=== PATIENT | male | born 1995 | race American Indian/Alaskan Native ===

== ENCOUNTER 2018-12-30 13:32 | Emergency (ER) | payer MEDICAID, OTHER ==
[2018-12-30 13:43] VITALS: BP 117/58
--- NOTE | 2018-12-30 13:44 | Emergency Department Report ---
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
--- NOTE | 2018-12-30 18:17 | Emergency Department Report ---
ED Rash HPI - HPI Chief Complaint: Rectal Pain Stated Complaint: ANUS PAIN Time Seen by Provider: 12/30/18 13:42 Suspected Cause: Unknown Rash Symptoms: No Itching, No Facial Swelling, No Tongue/Oral Swelling, No Breathing Difficulties, No Choking Sensation, No Wheezing/Dyspnea, No Peeling, No Blistering, No Fever, No Lightheaded, No Malaise, No Myalgias Severity: mild Other History: Patient is a 23-year-old that comes to the ER today complaining of pain around her rectum and around her rectum. She has had it for several days. Patient denies any physical altercation to me. Her vital signs are stable. ED Review of Systems ROS: Stated complaint: ANUS PAIN Other details as noted in HPI Comment: All other systems reviewed and negative ED Past Medical Hx - Past Medical History Previous Medical History?: No - Surgical History Past Surgical History?: No - Family History Family history: no significant - Social History Smoking Status: Never Smoker - Medications Home Medications: Home Medications Medication Instructions Recorded Confirmed Last Taken Type Naproxen [Naprosyn] 500 mg PO BID PRN #20 tablet 12/30/18 Unknown Rx Podofilox [Condylox 0.5%] 1 applicatio TP BID #1 gel..gram. 12/30/18 Unknown Rx Rash Exam - Exam General: Vital signs noted. No distress. Alert and acting appropriately. WDWN patient in NAD VS per RN flow sheet Alert and oriented to person, place and time. S1-S2. No S3 or S4. No systolic or diastolic murmur. No JVD. No pitting edema. Lungs clear to auscultation bilaterally anteriorly and posteriorly. Abdomen soft nontender bowel sounds x 4 rectal warts around anus- no hx of the same Moves all extremities well. Mood and affect appropriate. HEENT: No Periorbital Edema ED Course Vital Signs 12/30/18 13:42 Temperature 98.4 F Pulse Rate 78 Respiratory 18 Rate Blood Pressure 117/58 O2 Sat by Pulse 99 Oximetry ED Medical Decision Making - Medical Decision Making rectal warts on exam no hemorrhoids discussed with pt- provider is able to sign will dc home with outpatient follow up Vital Signs 12/30/18 13:42 Temperature 98.4 F Pulse Rate 78 Respiratory 18 Rate Blood Pressure 117/58 O2 Sat by Pulse 99 Oximetry Critical care attestation.: If time is entered above; I have spent that time in minutes in the direct care of this critically ill patient, excluding procedure time. ED Disposition Clinical Impression: Anal warts Disposition: TO HOME OR SELFCARE Is pt being admited?: No Does the pt Need Aspirin: No Condition: Stable Instructions: Genital Warts (ED) Additional Instructions: DIET TOLERATED MEDS ORDERED TODAY IN ER FOLLOW INSTRUCTIONS ON THE BOTTLE FOLLOW UP PCP WITHIN 48 HOURS TO ENSURE YOU ARE GETTING BETTER ACTIVITY TOLERATED MOTRIN OR TYLENOL FOR PAIN OR FEVER RETURN TO THE ER FOR WORSENING SYMPTOMS NOT RELIEVED BY YOUR MEDICATIONS. Prescriptions: Podofilox [Condylox 0.5%] 1 applicatio TP BID #1 gel..gram. Naproxen [Naprosyn] 500 mg PO BID PRN #20 tablet PRN Reason: Pain Referrals: OLENA LAMBERT MD [Primary Care Provider] - 3-5 Days JORDON GRIFFITHS MD [Staff Physician] - 3-5 Days Time of Disposition: 18:15
== END 2018-12-30 19:01 | disposition home or self-care (01) ==
LOC: ED 13:32
DX: A63.0 Anogenital (venereal) warts (principal)
CPT/HCPCS: 99282